=== PATIENT | male | born 2000 | race Caucasian/White ===

== ENCOUNTER 2021-08-16 22:33 | Emergency (ER) | payer OTHER, SELFPAY ==
[2021-08-16 22:57] VITALS: BP 134/87; PULSE 117; RESP 18; TEMP 37.4; O2SAT 96; BMI 36.7
--- NOTE | 2021-08-16 23:28 | ED_ITS ---
HPI - Nausea/Vomiting/Diarrhea General Chief complaint: Nausea/Vomiting/Diarrhea Stated complaint: n/v, stomach pain Time Seen by Provider: 08/16/21 23:32 Source: patient Mode of arrival: ambulatory Limitations: no limitations History of Present Illness HPI Narrative: Patient been having nausea and vomiting all day today unable to hold down any solids no fever has occasional cough no urinary complaints no other family member sick No diarrhea no abdominal pain Related Data Previous Rx's Medication Instructions Recorded ondansetron 4 mg disintegrating 4 mg PO Q6-8H PRN #7 tab 08/17/21 tablet Allergies Allergy/AdvReac Type Severity Reaction Status Date / Time No Known Allergies Allergy Unverified 08/16/21 22:56 Review of Systems Review of Systems: Yes all other systems are reviewed and are negative [facility] Past Medical History Medical History No known health problems Social History Social History Advance Directives: No Physical Exam Vital Signs: Vital Signs: Last Vital Signs Temp 99.3 F 08/16/21 22:57 Pulse 117 H 08/16/21 22:57 Resp 18 08/16/21 22:57 BP 134/87 08/16/21 22:57 Pulse Ox 96 08/16/21 22:57 BMI result Body Mass Index 36.7 Appearance: Alert. Oriented X3. No acute distress. ENT: Pharynx normal. Oral Mucosa moist Neck: Normal inspection. Neck supple. CVS: Normal heart rate and rhythm. Pulses normal. Respiratory: No respiratory distress. Equal air entry bilateral, Abdomen: Soft and nontender. Bowel sounds are present, no mass palpable, Skin: Skin warm and dry. Normal skin color. Normal skin turgor. Extremities: No lower extremity edema. No calf tenderness Neuro: Oriented X 3. MDM - Nausea/Vomiting/Diarrhea MDM Narrative Medical decision making narrative: Patient feeling much better now taking p.o. fluids had food in the ER likely virus COVID is negative POC 107 will discharge patient home Lab Data Attestation: I reviewed the patient's lab results. Labs: Lab Results 08/16/21 08/17/21 Range/Units 23:39 00:10 POC Glucose 107 (60-115) mg/dL COVID-19 ([facility]) Negative (Negative) COVID-19 Clin Com See Note Discharge Plan Discharge Clinical Impression: Gastroenteritis Patient Disposition: Home, Self-Care Instructions: Acute Nausea and Vomiting (ED) Additional Instructions: Drink plenty of fluid Medicine for the nausea advised Follow the PCP if not better Prescriptions: New ondansetron 4 mg tablet,disintegrating 4 mg PO Q6-8H PRN (Reason: nausea and vomiting) Qty: 7 0RF Interventions: ED Discharge Assessment Last Done: 08/17/21 00:18
[2021-08-16] MEDS: Ondansetron ODT 4 MG TAB.RAPDIS TRANSLINGU (23:43)
[2021-08-17] LABS: COVID-19 Test Negative (Negative)
--- NOTE | 2021-08-17 00:11 | PC.NURSE ---
Pt tolerating crakers and teresa fidel Denies any nausea Will continue to monitor
[2021-08-17 00:14] LABS: Glucose, Whole Blood 107 mg/dL (60-115)
== END 2021-08-17 00:31 | disposition home or self-care (01) ==
PROVIDERS: Emergency Provider Internal Medicine
DX: K52.9 Noninfective gastroenteritis and colitis, unspecified (principal); Z20.822 Contact with and (suspected) exposure to COVID-19; R11.2 Nausea with vomiting, unspecified
CPT/HCPCS: 82947; 87635; 99283

== ENCOUNTER 2022-01-09 11:41 | Emergency (ER) | payer OTHER, SELFPAY ==
--- NOTE | ~2022-01-09 | XR_ITS ---
EXAMINATION: XR ABDOMEN KUB CLINICAL INDICATION: Bowel obstruction COMPARISON: None TECHNIQUE: AP view of the abdomen. FINDINGS: The bowel gas pattern is normal. No dilated large or small bowel loops are evident. No radiopaque calculi are detected. Osseous structures are unremarkable. XR/XR KUB IMPRESSION: Unremarkable examination.
--- NOTE | ~2022-01-09 | XR_ITS ---
EXAMINATION: XR CHEST CLINICAL INFORMATION: Cough, question pneumonia COMPARISON: None TECHNIQUE: Frontal view of the chest was obtained. FINDINGS: The lungs are clear. There are no pleural effusions. The cardiomediastinal silhouette is normal XR/XR chest 1V IMPRESSION: No acute disease.
[2022-01-09 11:49] VITALS: BP 142/79; PULSE 55; RESP 18; TEMP 37; O2SAT 96; BMI 34.0
[2022-01-09] MEDS: Albuterol Sulfate 90 MCG 8 GM INHALER 4 PUFF INHALE (12:42)
[2022-01-09 12:43] VITALS: PULSE 60; RESP 18; O2SAT 96
[2022-01-09 12:43] LABS: COVID-19 Test Negative (Negative)
--- NOTE | 2022-01-09 12:52 | ED_ITS ---
HPI - General Adult General Chief complaint: Nausea/Vomiting/Diarrhea Stated complaint: vomiting/abd pain Time Seen by Provider: 01/09/22 13:58 Source: patient Mode of arrival: ambulatory Limitations: no limitations History of Present Illness HPI narrative: 21-year-old male presents to ED for constipation. Patient has not had any bowel movements in 4 days. Patient states some vomiting. Patient also states coug brandy with wheezing for the past 3 days. Denies any chest pain or shortness of breath. Patient admits to being a smoker. Patient denies any history of surgical abdomen. Patient denies any dysuria, hematuria, flank pain, fever, abdominal pain, testicular pain, or chills. Related Data Previous Rx's Medication Instructions Recorded ondansetron 4 mg disintegrating 4 mg PO Q6-8H PRN nausea and 08/17/21 tablet vomiting #7 tabs lactulose 20 gram oral packet 20 g PO DAILY 3 days #3 ea 01/09/22 Allergies Allergy/AdvReac Type Severity Reaction Status Date / Time No Known Allergies Allergy Unverified 08/16/21 22:56 Review of Systems Review of Systems: constipation. cough and wheezing. nausea and vomitting. Yes all other systems are reviewed and are negative PMFSH Past Medical History Medical History No known health problems Social History Social History Advance Directives: No Advance Directives Information Provided: No Physical Exam ED Vital Signs: Vital Signs - 24 hr 01/09/22 11:49 01/09/22 12:43 Temperature 98.6 F Pulse Rate 55 60 Respiratory Rate 18 18 Blood Pressure 142/79 H Pulse Oximetry 96 Oxygen Delivery Method Room Air BMI result Body Mass Index 34.0 Const General: cooperative, healthy appearing, comfortable, no acute distress, well developed, alert, awake and Physically active Orientation/consciousness: oriented to time and patient oriented x3 HENMT Head: Yes normal to inspection, Yes No palpable skull fracture present, Yes normocephalic, Yes atraumatic and No abrasion Eyes General: appearance normal, both eyes and all related structures Neck Neck: Yes normal visual inspection, Yes full ROM, Yes no lymphadenopathy, Yes no meningeal signs, Yes trachea midline, Yes supple, No anterior neck swelling and No tender Chest Chest palpation & inspection: normal inspection of the chest and normal palpation of entire chest wall Resp Effort & Inspection: normal respiratory effort and able to speak in complete sentences Auscultation: clear to auscultation bilaterally Cardio Jugular venous distension: no JVD Heart sounds: S1 normal heart sound present and S2 normal heart sound present GI Inspection: Yes normal to inspection and No abdominal wall ecchymosis Palpation (GI): Soft to palpation, not firm, nontender, no guarding and not rigid General: No CVA tenderness and Yes no CVA tenderness Back/Spine/Pelvis Back: no CVA tenderness, No CVA tenderness and No back tenderness Skin General skin exam: no rashes or lesions noted and elasticity normal Neuro General: oriented to time, patient oriented x3, gait normal, tone normal and no meningeal signs Cranial nerves: Yes CN's II-XII intact bilaterally Extrem General: Yes normal to inspection and Yes full ROM Psych Appearance: grossly normal, well kempt and not disheveled Course Course Course Narrative: Patient denies any history of asthma. albuterol pump ordered. Was sent for KUB and chest x-ray. COVID swab ordered. Reevaluation(s) Reevaluation #1: Chest x-ray normal. KUB negative for bowel obstruction Patient feels better after receiving albuterol pump. COVID swab negative. Abdomen re-examined soft nontender and benign. Patient will be treated as constipation. Not suspecting appendicitis, cholecystitis, pancreatitis, or any emergent medical/surgical etiology and abdomen. Patient did not vomit during ED visit. Patient was not in any pain during ED visit. Time: 13:47 Medical Decision Making [facility] Narrative Medical decision making narrative: Constipation. Bronchitis Lab Data Labs: Lab Results 01/09/22 Range/Units 12:23 COVID-19 ([facility]) Negative (Negative) COVID-19 Clin Com See Note Discharge Plan Discharge Clinical Impression: Constipation, Bronchitis Patient Disposition: Home, Self-Care Additional Instructions: Abdominal x-ray came back negative for bowel obstruction. Chest x-ray came back normal. Continue using albuterol inhaler you were given in the ER every 4-6 hours as needed. Return to the ED immediately for abdominal pain, nausea, vomiting, flank pain, fever, chills, dysuria, hematuria, testicular pain, chest pain, shortness of breath, or any other concerning symptoms. Prescriptions: New lactulose 20 gram packet 20 g PO DAILY 3 Days Qty: 3 0RF No Action ondansetron 4 mg tablet,disintegrating 4 mg PO Q6-8H PRN (Reason: nausea and vomiting) Qty: 7 0RF Interventions: ED Discharge Assessment Last Done: 01/09/22 14:11 Discharge Date/Time: 01/09/22 14:12 Print Language: Syriac
[2022-01-09] MEDS: Lactulose 20 GM/30 ML SOLUTION 30 GM PO (14:05)
== END 2022-01-09 14:12 | disposition home or self-care (01) ==
PROVIDERS: Physician Assistant; Emergency Provider Student in an Organized Health Care Education/Training Program
DX: J40 Bronchitis, not specified as acute or chronic (principal); K59.00 Constipation, unspecified; Z20.822 Contact with and (suspected) exposure to COVID-19; Z79.899 Other long term (current) drug therapy
CPT/HCPCS: 71045; 74018; 87635; 94640; 99283; 99284